=== PATIENT | female | born 2000 ===

== ENCOUNTER 2023-11-23 18:20 | Outpatient (REF) | payer MEDICAID, SELFPAY | END 2023-11-23 18:21 | disposition home or self-care (01) | LOC: HO.HHCLNP 18:20 | PROVIDERS: Visit Provider Student in an Organized Health Care Education/Training Program | DX: Z13.89 Encounter for screening for other disorder (principal) ==

== ENCOUNTER 2024-04-16 16:32 | Outpatient (REF) | payer OTHER, SELFPAY ==
[2024-04-16 18:19] LABS: MANUAL DIFF FLAG NO
[2024-04-16 18:28] LABS: Basophils Absolute Auto 0.1 X10*3/uL (0.0-0.2); Basophils Percent Auto 0.3 % (0-2); Eosinophils Percent Auto 0.1 % (0-4); Hematocrit 39.4 % (37.0-47.0); Hemoglobin 12.9 g/dl (12.0-16.0); Imm Gran Abs Auto 0.12 X10*3/uL (0.00-0.03); Imm Gran Pct Auto 0.6 % (0.0-0.4); Lymphocytes Absolute Auto 1.4 X10*3/uL (1.2-4.9); Lymphocytes Percent Auto 7.4 % (20-40); Mean Corpuscular HGB Conc 32.7 g/dl (31.0-35.0); Mean Corpuscular Hemoglobin 27.4 pg (27.0-33.0); Mean Corpuscular Volume 83.8 fL (80.0-98.0); Mean Platelet Volume 12.2 fL (9.4-12.3); Monocytes Absolute Auto 1.4 X10*3/uL (0.1-1.2); Neutrophils Absolute Auto 16.6 x10*3/uL (2.0-8.3); Neutrophils Percent Auto 84.6 % (45-73); Platelet Count 225 X10*3/uL (160-400); Red Cell Distribution Width 14.2 % (11.0-16.0); White Blood Count 19.6 X10*3/uL (4.8-10.8)
[2024-04-16 18:40] LABS: Anion Gap 17 (12-20); Blood Urea Nitrogen 9 mg/dL (9-16); Calcium 9.7 mg/dL (8.4-10.2); Carbon Dioxide 23 mmol/L (22-29); Chloride 101 mmol/L (96-108); Estimated Glomerular Filt Rate > 60; Glucose Random 132 mg/dL (60-115); Potassium 3.8 mmol/L (3.3-5.1); Sodium 137 mmol/L (135-145)
== END 2024-04-16 16:33 | disposition home or self-care (01) ==
LOC: HO.HHCL 16:32
PROVIDERS: Visit Provider Internal Medicine Geriatric Medicine
DX: R50.9 Fever, unspecified (principal); R39.9 Unspecified symptoms and signs involving the genitourinary system; R10.9 Unspecified abdominal pain; R82.79 Other abnormal findings on microbiological examination of urine
CPT/HCPCS: 36415; 80048; 85025; 87086; 87088; 87186

== ENCOUNTER 2024-07-12 11:32 | Outpatient (REF) | payer OTHER, SELFPAY ==
[2024-07-12 13:46] LABS: Hematocrit 45.1 % (37.0-47.0); Hemoglobin 14.8 g/dl (12.0-16.0); Mean Corpuscular HGB Conc 32.8 g/dl (31.0-35.0); Mean Corpuscular Hemoglobin 27.9 pg (27.0-33.0); Mean Corpuscular Volume 84.9 fL (80.0-98.0); PLT CLUMP 1; Red Blood Count 5.31 X10*6/uL (4.20-5.50); Red Cell Distribution Width 13.8 % (11.0-16.0)
[2024-07-12 14:03] LABS: Estimated Average Glucose 100 mg/dL; Hemoglobin A1C 128.5678 umol/L; Hemoglobin A1c % 5.1 % (<6.0); Total Hemoglobin (HGBA1C) 3941.2196 umol/L
[2024-07-12 14:07] LABS: Mean Platelet Volume 12.9 fL (9.4-12.3); Platelet Count 180 X10*3/uL (160-400); White Blood Count 7.3 X10*3/uL (4.8-10.8)
[2024-07-12 14:15] LABS: Alanine Aminotransferase 20 U/L (0-31); Albumin Level 4.8 g/dL (3.5-5.0); Alkaline Phosphatase 55 U/L (39-117); Anion Gap 14 (12-20); Aspartate Amino Transferase 25 U/L (5-31); Bilirubin Total 0.5 mg/dL (0.0-1.0); Blood Urea Nitrogen 11 mg/dL (9-16); Calcium 10.3 mg/dL (8.4-10.2); Carbon Dioxide 21 mmol/L (22-29); Chloride 110 mmol/L (96-108); Estimated Glomerular Filt Rate > 60; Glucose Random 78 mg/dL (60-115); Potassium 3.8 mmol/L (3.3-5.1); Sodium 141 mmol/L (135-145); Total Protein 8.2 g/dL (6.5-8.0)
[2024-07-12 14:23] LABS: TSH reflex Free T4 2.91 uIU/mL (0.32-4.0)
[2024-07-12 15:27] LABS: CT PCR NOT DETECTED (Not Detect.); NG PCR NOT DETECTED (Not Detect.)
[2024-07-13 09:00] LABS: HBc Num1 0.16 S/CO (0.00-0.79); HBsAGNum1 0.53 S/CO (0.00-0.99); HIV AB/AG Nonreactive (Nonreactive); HIV Num 1 0.11 S/CO (0.00-0.99); Hepatitis B Core Antibody Nonreactive (Nonreactive); Hepatitis B Surface Antigen Negative (Negative); ~HepC Num1 0.17 S/CO (0.00-0.79); ~Hepatitis B Surface Antibody REACTIVE (Nonreactive); ~Hepatitis C Antibody Nonreactive (Nonreactive)
[2024-07-13 09:08] LABS: Syphilis Screen Nonreactive (Nonreactive)
== END 2024-07-12 11:33 | disposition home or self-care (01) ==
LOC: HO.HHCL 11:32
PROVIDERS: Visit Provider Student in an Organized Health Care Education/Training Program
DX: Z00.00 Encounter for general adult medical examination without abnormal findings (principal); Z13.1 Encounter for screening for diabetes mellitus
CPT/HCPCS: 36415; 80053; 83036; 84443; 85027; 86704; 86706; 86780; 86803; 87340; 87389; 87491; 87591